=== PATIENT | male | born 1950 | race Caucasian/White ===

== ENCOUNTER 2023-10-15 05:41 | Observation (INO) ==
[~2023-10-15 05:41] MED LIST: Naloxone 0.4 mg VIAL 0.4 mg/ml 1 ml VIAL IV PRN; Ondansetron 4 mg VIAL 2 MG/ML 2 ml VIAL IV PRN; fentaNYL 100 mcg/2 ml 50 MCG/ML VIAL IV PRN
[2023-10-15] MEDS ORDERED: Tranexamic Acid 1 GM/100ML BAG 2,000 MG/200 ML BAG IV ONE (06:14)
[2023-10-15] MEDS ORDERED: ceFAZolin 2 GM in NS PREMIX 2 GM/100 ML BAG IVPB ONE (06:14)
[2023-10-15] MEDS: Lactated Ringers 1000 ml BAG 1,000 ML IV SCH ×2 (06:57→14:11)
[2023-10-15] MEDS: Buffered Lidocaine 1% SYRIN 1 ml INTRADERM ONE (06:57)
[2023-10-15] MEDS ORDERED: Propofol 10 MG/ML 20 ML BTL ONE ×2 (07:00→09:35)
[2023-10-15] MEDS ORDERED: Lidocaine 2% PF 5 ML VIAL ONE (07:01)
[2023-10-15] MEDS ORDERED: ROPIVACAINE 5 MG/ML 30 ML BTL (0.5%) ONE (07:03)
[2023-10-15] MEDS ORDERED: Phenylephrine IV 10 MG/ML 1 ml VIAL ONE (07:07)
[2023-10-15] MEDS ORDERED: Midazolam 2 mg/2 ml VIAL 1 mg/ml 2 ml VIAL (2 mg) ONE ×2 (07:07→08:05)
[2023-10-15 07:08] LABS: Rapid COVID-19 Molecular Undetected (Undetected)
[2023-10-15] MEDS ORDERED: KETAMINE HCL 10 MG/ML 20 ml VIAL (200 MG) ONE (07:09)
[2023-10-15] MEDS ORDERED: fentaNYL 100 mcg/2 ml 50 MCG/ML VIAL ONE (08:00)
[2023-10-15] MEDS ORDERED: Ondansetron 4 mg VIAL 2 MG/ML 2 ml VIAL IV PRN (09:25)
[2023-10-15] MEDS ORDERED: Morphine 2 MG/ML SYRINGE IV PRN (09:25)
[2023-10-15] MEDS ORDERED: Ondansetron ODT 4 mg TAB 4 MG TAB PO PRN (09:25)
[2023-10-15] MEDS ORDERED: Lactulose 30 ml UDC PO PRN (09:25)
[2023-10-15] MEDS ORDERED: Magnesium Hydroxide LIQ 30 ML UDC PO PRN (09:25)
[2023-10-15] MEDS ORDERED: Calcium Carb (TUMS) 500 mg CHEW TAB PO PRN (09:25)
[2023-10-15] MEDS ORDERED: Ondansetron 4 mg VIAL 2 MG/ML 2 ml VIAL ONE (09:38)
[2023-10-15 15:34] VITALS: BP 113/77
[2023-10-15] MEDS: ceFAZolin 2 GM in NS PREMIX 2 GM/100 ML BAG IVPB SCH (15:44)
[2023-10-15] MEDS ORDERED: Magnesium Hydroxide LIQ 30 ML UDC PO SCH (21:00)
[2023-10-16] MEDS ORDERED: Vitamin THERAPEUTIC TAB PO SCH (09:00)
== END 2023-10-15 17:30 | disposition home or self-care (01) ==
LOC: SSU 05:41 → OR 05:41
PROVIDERS: ADMIT Orthopaedic Surgery Adult Reconstructive Orthopaedic Surgery; ATTEND Orthopaedic Surgery Adult Reconstructive Orthopaedic Surgery